=== PATIENT | male | born 1995 | race Caucasian/White ===

== ENCOUNTER → 2017-12-12 | Outpatient (CLI) | payer BC | END | disposition home or self-care (01) | LOC: LAB 13:52 → LAB SHORT 13:52 | DX: R35.0 Frequency of micturition (principal) | CPT/HCPCS: 87086 ==

== ENCOUNTER → 2020-07-28 | Outpatient (CLI) | payer BC ==
[2020-07-29 12:41] LABS: CORNONAVIRUS (COVID19) CSH-NRL Negative (Negative)
== END | disposition home or self-care (01) ==
LOC: LAB SHORT 08:36 → LAB EV 08:36
PROVIDERS: Family Medicine
DX: J06.9 Acute upper respiratory infection, unspecified (principal); Z20.828 Contact with and (suspected) exposure to other viral communicable diseases
CPT/HCPCS: 87081; U0003

== ENCOUNTER → 2021-05-13 | Outpatient (CLI) | payer BC | END | disposition home or self-care (01) | LOC: LAB SHORT 15:35 → LAB 15:35 | DX: Z20.9 Contact with and (suspected) exposure to unspecified communicable disease (principal); Z20.822 Contact with and (suspected) exposure to COVID-19 | CPT/HCPCS: U0003 ==

== ENCOUNTER → 2025-06-05 | Outpatient (CLI) | payer OTHER ==
[2025-06-05 14:09] LABS: BASOPHILS ABSOLUTE AUTO 0.02 K/mm3 (0.00-0.23); BASOPHILS PERCENT AUTO 0 % (0-2); EOSINOPHILS ABSOLUTE AUTO 0.23 K/mm3 (0.00-0.68); EOSINOPHILS PERCENT AUTO 5 % (0-6); Hematocrit 43.2 % (37.0-53.0); Hemoglobin 15.3 g/dL (13.5-17.5); IMMATURE GRAN ABSOLUTE AUTO 0.01 K/mm3 (0.00-0.10); IMMATURE GRAN PERCENT AUTO 0 % (0-1); LYMPHOCYTES ABSOLUTE AUTO 2.04 K/mm3 (0.84-5.20); LYMPHOCYTES PERCENT AUTO 40 % (21-46); MONOCYTES ABSOLUTE AUTO 0.34 K/mm3 (0.16-1.47); MONOCYTES PERCENT AUTO 7 % (4-13); Mean Corpuscular HGB Conc 35.4 g/dL (31.5-36.5); Mean Corpuscular Volume 86 fL (80-100); NEUTROPHILS ABSOLUTE AUTO 2.44 K/mm3 (1.96-9.15); NEUTROPHILS PERCENT AUTO 48 % (41-73); NRBC ABSOLUTE 0.00 K/mm3 (0.00-0.02); NRBC Auto 0.0 /100 WBC (0.0-0.2); Platelet Count 287 K/mm3 (150-400); RDW Coefficient Variation 12.2 % (11.7-14.2); RDW Standard Deviation 37.9 fL (35.1-46.3)
[2025-06-05 14:23] LABS: Alanine Aminotransfer (ALT/SGP 38.0 U/L (12-78); Albumin, Blood 4.8 g/dL (3.4-5.0); Albumin/Globulin Ratio 1.3 (0.8-1.8); Anion Gap 14.0 mmol/L (3-11); Aspartate Aminotrans (AST/SGOT 24.0 U/L (12-37); Bilirubin, Total 0.7 mg/dL (0.1-1.0); Blood Urea Nitrogen 14.0 mg/dL (8-24); CO2, Blood 31.0 mmol/L (21-32); Calcium, Blood 10.0 mg/dL (8.5-10.1); Chloride, Blood 103.0 mmol/L (98-108); Creatinine, Blood 0.91 mg/dL (0.60-1.20); Globulin, Blood 3.7 g/dL (2.2-4.0); Glucose, Blood 104.0 mg/dL (70-99); Potassium, Blood 4.5 mmol/L (3.5-5.5); Sodium, Blood 143.0 mmol/L (136-145); Total Protein, Blood 8.5 g/dL (6.4-8.2)
[2025-06-05 14:44] LABS: Thyroid Stimulating Hormone 1.161 uIU/mL (0.360-4.800)
== END | disposition home or self-care (01) ==
LOC: LAB SHORT 14:03 → LAB 14:03
PROVIDERS: Chiropractor
DX: R00.0 Tachycardia, unspecified (principal); R53.83 Other fatigue
CPT/HCPCS: 80053; 84439; 84443; 85025; 85379

== ENCOUNTER 2025-06-15 19:33 | Emergency (ER) | payer OTHER ==
[~2025-06-15] VITALS: Ht 182.9 cm; Wt 54.4 kg
[2025-06-15] MEDS ORDERED: FentaNYL Citrate 50 MCG/ML 2 ML Injection IV ONE (20:30)
[2025-06-15] MEDS ORDERED: HYDROmorphone HCl/Pf 1MG SYR IV PRN (21:20)
[2025-06-15] MEDS ORDERED: SENNA LAXATIVE8.6 MG PO (22:30)
[2025-06-15] MEDS ORDERED: POLY500 PO (22:30)
[2025-06-15] MEDS ORDERED: OxyCODONE 10/Acetamin 325 TABLET PO ONE (22:30)
[2025-06-15] MEDS ORDERED: OXAYDO5 M1 PO (22:30)
[2025-06-15] MEDS ORDERED: ONDA4ODT MM (22:30)
[2025-06-15] MEDS ORDERED: RX Prepack 6 Tabs Oxycodone 5mg UD ONE (22:40)
[2025-06-15] MEDS ORDERED: RX Prepack 2 Tabs Ondansetron ODT 4MG UD ONE (22:40)
[2025-06-15] MEDS ORDERED: HYDHCL25 PO (23:25)
[2025-06-15 23:37] VITALS: BP 107/58
== END 2025-06-15 23:37 | disposition home or self-care (01) ==
LOC: ER 19:33
DX: S42.341A Displaced spiral fracture of shaft of humerus, right arm, initial encounter for closed fracture (principal); X58.XXXA Exposure to other specified factors, initial encounter; Y93.6A Activity, physical games generally associated with school recess, summer camp and children; J45.909 Unspecified asthma, uncomplicated
CPT/HCPCS: 29105; 73060; 73200; 76377; 96374-59; 96375-59; 99284-25; A9270; J1171; J3010

== ENCOUNTER 2025-06-22 11:22 | Emergency (ER) | payer OTHER ==
[~2025-06-22] VITALS: Ht 182.9 cm; Wt 54.4 kg
[~2025-06-22 11:22] MED LIST: HYDHCL25 PO; ONDA4ODT MM; OXAYDO5 M1 PO; POLY500 PO; SENNA LAXATIVE8.6 MG PO
[2025-06-22 11:54] VITALS: BP 118/57
[2025-06-22] MEDS ORDERED: Roxicodone5 MG PO (11:58)
[2025-06-22] MEDS ORDERED: POLY500 PO (13:05)
[2025-06-22] MEDS ORDERED: SENNA LAXATIVE8.6 MG PO (13:05)
[2025-06-22] MEDS ORDERED: ONDA4 PO (13:06)
[2025-06-22] MEDS ORDERED: IBUP200 PO (13:07)
[2025-06-22] MEDS ORDERED: ACETAMINOPHEN500 M2 PO (13:08)
== END 2025-06-22 12:35 | disposition home or self-care (01) ==
LOC: ER 11:22
DX: S42.341D Displaced spiral fracture of shaft of humerus, right arm, subsequent encounter for fracture with routine healing (principal); J45.909 Unspecified asthma, uncomplicated; X58.XXXD Exposure to other specified factors, subsequent encounter; Z76.0 Encounter for issue of repeat prescription; Z79.899 Other long term (current) drug therapy
CPT/HCPCS: 99281

== ENCOUNTER 2025-06-24 07:27 | Day surgery (SDC) | payer OTHER ==
[2025-06-24] VITALS (10 sets, daily range): BP systolic 95–118; BP diastolic 60–77
[~2025-06-24] VITALS: Ht 182.9 cm; Wt 55.9 kg
[~2025-06-24 07:27] MED LIST changes: +ACETAMINOPHEN500 M2 PO; +Bupivacaine 0.5% HCl 5 MG/ML 30MLVIAL ONE; +IBUP200 PO; +ONDA4 PO; +Roxicodone5 MG PO
[2025-06-24] MEDS ORDERED: CeFAZolin Sodium 2,000 MG in NS 100 ML IV SCH (07:40)
[2025-06-24] MEDS ORDERED: Dexmedetomidine HCL 200 MCG / 2 ML ONE (08:31)
[2025-06-24] MEDS ORDERED: Bupivacaine 0.5% HCl 5 MG/ML 30MLVIAL ONE (08:46)
[2025-06-24] MEDS ORDERED: Dexamethasone Sod Phos 10 MG/ML 1ML VIAL ONE (08:47)
--- NOTE | 2025-06-24 09:01 | NUR ---
nerve block supraclavicular timeout 901 with start: 905 end: 911 pt long well, o2 monitored t/o procedure.
[2025-06-24] MEDS ORDERED: HYDROmorphone HCl/Pf 1MG SYR ONE (10:11)
[2025-06-24] MEDS ORDERED: FentaNYL Citrate 50 MCG/ML 2 ML Injection ONE (10:18)
[2025-06-24] MEDS ORDERED: Tranexamic Acid 100 ML IV ONE (10:27)
[2025-06-24] MEDS ORDERED: Phenylephrine HCl 100 MCG/ML-NS 10MLSYR (1MG/10ML) ONE (11:00)
[2025-06-24] MEDS ORDERED: HYDROmorphone HCl/Pf 1MG SYR IV PRN (11:15)
[2025-06-24] MEDS ORDERED: FentaNYL Citrate 50 MCG/ML 2 ML Injection IV PRN (11:20)
[2025-06-24] MEDS ORDERED: Sugammadex Sodium 200 MG/2ML SDV (100 MG/ML) ONE (11:20)
[2025-06-24] MEDS ORDERED: Ondansetron HCl 2 MG / ML 2ML Vial IV PRN (11:20)
[2025-06-24] MEDS ORDERED: Ondansetron HCl 2 MG / ML 2ML Vial ONE (11:20)
[2025-06-24] MEDS ORDERED: Ketorolac Tromethamine 30mg Vial IV PRN (11:25)
--- NOTE | 2025-06-24 13:21 | NUR ---
DISCHARGE NOTE PT A&OX4, BREATHING RA, PT TOLERATING PO INTAKE. PT HAS NO NAUSEA, STATES PAIN IS TOLERABLE. FINGERS TO OPERTIVE LIMB ARE PWD C BRISK CAP REFILL. OPERATIVE ARM IN IMMOBILIZER SLING. AT BEDSIDE. ICE PACK PROVIDED. Patient up to Ambulate independently. Gait steady. PT VOIDED 2X PRIOR TO DC. Discharge instructions reviewed with patient. Patient verbalizes understanding. Copy given to patient to take home. Dressing to procedure site clean, dry, intact with no visible drainage, swelling, erythema or bruising noted. PT SENT HOME WITH [employer] FOR DRESSING CHANGES AT HOME. Discharged via wheelchair to private car for ride home.
[2025-06-24] MEDS ORDERED: Rocuronium Bromide 10 MG/ML 5ML Injection IV ONE (16:23)
== END 2025-06-24 13:15 | disposition home or self-care (01) ==
LOC: ORSCMMR 07:27 → ORD 09:00 → ORSCMMR 09:00 → ORD 18:00
PROVIDERS: Orthopaedic Surgery
PROC: 0PSF04Z Reposition Right Humeral Shaft with Internal Fixation Device, Open Approach (ICD-10-PCS; principal; 2025-06-24 09:00)
DX: S42.301A Unspecified fracture of shaft of humerus, right arm, initial encounter for closed fracture (principal); Y93.6A Activity, physical games generally associated with school recess, summer camp and children
CPT/HCPCS: C1713; C1769; J0690; J1100; J1171; J2371; J2405; J2704; J3010; J7120